=== PATIENT | male | born 1965 | race Caucasian/White ===

== ENCOUNTER 2020-03-01 07:20 | Day surgery (SDC) | payer BC ==
[~2020-03-01] VITALS: Ht 180.3 cm; Wt 100.0 kg
[~2020-03-01 07:20] MED LIST: ANDROGEL75 GM TD; BUPR1 PO; BUPRENORPHINE HC8 MG SL; CRUTCH3 USE; DIAZ5 PO; HYDACE5 PO; L-METHYLFOLATE15 MG PO; NEBI10 PO; OXCA300 PO; Prinivil10 MG PO; SULTRIDS PO; TAMS.4ER PO; Trileptal600 MG PO; Viagra100 MG PO; Vyvanse70 MG PO
[2020-03-01] MEDS ORDERED: Vyvanse70 MG PO (10:41)
[2020-03-01] MEDS ORDERED: BUPRENORPHINE HC8 MG PO (10:43)
[2020-03-01] MEDS ORDERED: TAMS.4ER PO (10:44)
[2020-03-01] MEDS ORDERED: BUPRENORPHINE HC8 MG SL (10:44)
[2020-03-01] MEDS ORDERED: Prinivil10 MG PO (10:44)
[2020-03-01] MEDS ORDERED: ANDROGEL TOP (10:45)
[2020-03-01] MEDS ORDERED: Klonopin0.5 MG PO (10:47)
[2020-03-01] MEDS ORDERED: SILDENAFIL CIT100 MG PO (10:48)
== END 2020-03-01 09:18 | disposition home or self-care (01) ==
LOC: ORSCSDS 07:20
PROVIDERS: Surgery
PROC: 0DJD8ZZ Inspection of Lower Intestinal Tract, Via Natural or Artificial Opening Endoscopic (ICD-10-PCS; principal; 2020-03-01 08:30)
DX: Z12.11 Encounter for screening for malignant neoplasm of colon (principal); Z86.010 Personal history of colon polyps; I10 Essential (primary) hypertension; E78.5 Hyperlipidemia, unspecified; K21.9 Gastro-esophageal reflux disease without esophagitis; F31.9 Bipolar disorder, unspecified; Z79.899 Other long term (current) drug therapy
CPT/HCPCS: J2405; J2704; J7120

== ENCOUNTER → 2020-09-05 | Outpatient (CLI) | payer OTHER ==
[~2020-09-05] MED LIST changes: +ANDROGEL TOP; +BUPRENORPHINE HC8 MG PO; +Klonopin0.5 MG PO; +SILDENAFIL CIT100 MG PO
== END | disposition home or self-care (01) ==
LOC: PLD 14:31 → LAB SHORT 14:31
DX: L57.0 Actinic keratosis (principal)
CPT/HCPCS: 88305

== ENCOUNTER → 2022-11-19 | Outpatient (CLI) | payer OTHER | END | disposition home or self-care (01) | LOC: LAB SHORT 12:27 → LAB 12:27 | DX: L57.0 Actinic keratosis (principal) | CPT/HCPCS: 88305 ==

== ENCOUNTER 2025-08-20 11:34 | Day surgery (SDC) | payer OTHER ==
[~2025-08-20] VITALS: Ht 180.3 cm; Wt 92.8 kg
[2025-08-20] VITALS (16 sets, daily range): BP systolic 99–165; BP diastolic 65–94
[~2025-08-20 11:34] MED LIST changes: +CLON2 PO; +DEXTROAMPHETAMI10 M1 PO; +LOSA50 PO; +[UNRECOGNIZED DRUG - OTHER] PO
--- NOTE | 2025-08-20 12:13 | NUR ---
Ambulatory in Day Surgery. History, Chart, Medications and Allergies reviewed before start of procedure. Patient confirms NPO status and agrees with scheduled surgery. Pre-Op teaching done. Pt verbalizes understanding. Patient States Post-Procedure ride home has been arranged. Pt belongings placed underneath [facility] for safekeeping.
[2025-08-20] MEDS ORDERED: Midazolam HCl 1MG / ML 2ML Vial ONE (12:18)
--- NOTE | 2025-08-20 13:17 | NUR ---
Discharge instructions reviewed with patient. Patient verbalizes understanding. Copy given to patient to take home. Patient States Post-Procedure ride home has been arranged. Discharged via wheelchair to private car for ride home.
== END 2025-08-20 13:18 | disposition home or self-care (01) ==
LOC: ORSCMMR 11:34 → ORD 13:00 → ORSCMMR 13:18
DX: Z12.11 Encounter for screening for malignant neoplasm of colon (principal); D12.2 Benign neoplasm of ascending colon; K63.5 Polyp of colon; Z86.0100 Personal history of colon polyps, unspecified; I10 Essential (primary) hypertension; E78.5 Hyperlipidemia, unspecified; K21.9 Gastro-esophageal reflux disease without esophagitis; F31.9 Bipolar disorder, unspecified; Z79.899 Other long term (current) drug therapy
CPT/HCPCS: 88305; J2250; J2704; J7120